=== PATIENT | female | born 1940 | race Caucasian/White ===

== ENCOUNTER → 2016-11-09 | Outpatient (CLI) | payer OTHER, MEDICARE | LOC: FIMAGING 10:23 | PROVIDERS: ATTEND Internal Medicine | DX: Z12.31 Encounter for screening mammogram for malignant neoplasm of breast (principal) | CPT/HCPCS: G0202 ==

== ENCOUNTER → 2017-07-28 | Outpatient (CLI) | payer OTHER, MEDICARE ==
[~2017-07-28] MED LIST: LIDOCAINE 1% 300 MG/30 ML SDV ONE
== END ==
LOC: FIMAGING 12:06
PROVIDERS: ATTEND Internal Medicine
PROC: 0G9K3ZZ Drainage of Thyroid Gland, Percutaneous Approach (ICD-10-PCS; principal; 2017-07-28)
DX: E04.1 Nontoxic single thyroid nodule (principal)

== ENCOUNTER → 2017-11-10 | Outpatient (CLI) | payer OTHER, MEDICARE | LOC: FIMAGING 09:19 | PROVIDERS: ATTEND Internal Medicine | DX: Z12.31 Encounter for screening mammogram for malignant neoplasm of breast (principal) ==

== ENCOUNTER → 2017-12-26 | Outpatient (CLI) | payer OTHER, MEDICARE | LOC: FIMAGING 13:18 | PROVIDERS: ATTEND Internal Medicine | DX: Z13.820 Encounter for screening for osteoporosis (principal); M81.0 Age-related osteoporosis without current pathological fracture; M54.9 Dorsalgia, unspecified; Z82.62 Family history of osteoporosis; Z90.711 Acquired absence of uterus with remaining cervical stump; Z79.890 Hormone replacement therapy; Z79.899 Other long term (current) drug therapy ==

== ENCOUNTER → 2018-05-19 | Outpatient (CLI) | payer OTHER, MEDICARE | LOC: FIMAGING 15:19 | PROVIDERS: ATTEND Specialist | DX: Z12.2 Encounter for screening for malignant neoplasm of respiratory organs (principal); R91.8 Other nonspecific abnormal finding of lung field; D41.02 Neoplasm of uncertain behavior of left kidney ==

== ENCOUNTER 2018-06-15 11:35 | Inpatient (IN) | payer OTHER, MEDICARE | END 2018-06-19 18:04 | disposition home health service (06) | LOC: F3E 11:35 → F1N 12:00 ==

== ENCOUNTER 2018-11-13 12:01 | Day surgery (SDC) | payer OTHER, MEDICARE ==
[2018-11-13] MEDS ORDERED: LR 1,000 ML IV ONE (12:29)
--- NOTE | 2018-11-13 12:55 | PDANEPAE ---
ANE History of Present Illness blood in stool, h/o polyp, abdominal pain ANE Past Medical History - Cardiovascular History Hx Hypertension: No Hx Arrhythmias: No Hx Chest Pain: No Hx Coronary Artery / Peripheral Vascular Disease: No Hx CHF / Valvular Disease: No Hx Palpitations: No - Pulmonary History Hx COPD: No Hx Asthma/Reactive Airway Disease: No Hx Recent Upper Respiratory Infection: No Hx Oxygen in Use at Home: No Hx Sleep Apnea: No Sleep Apnea Screening Result - Last Documented: Negative - Neurologic History Hx Cerebrovascular Accident: No Hx Seizures: No Hx Dementia: No Neurologic History Comment: occ migraine. benign tremor - Endocrine History Hx Diabetes: No Hypothyroid: Yes Hyperthyroid: No Obesity: no Endocrine History Comment: hypothyroidism - Renal History Hx Renal Disorders: Yes Renal History Comment: L KIDNEY CANCER. HX - Hydronephrosis. hx of left nephrectomy and ureterectomy in 06/2018 with Melouk. bladder infection s/p surgery - Liver History Hx Hepatic Disorders: No - Neurological & Psychiatric Hx Hx Neurological and Psychiatric Disorders: No Neurological / Psychiatric History Comment: insomnia - Cancer History Hx Cancer: Yes Cancer History Comment: L KIDNEY CANCER- surgical intervention only. BASAL CELL LESIONS REMOVE - Congenital Disorder History Hx Congenital Disorders: No - GI History GERD: no Hx Gastrointestinal Disorders: Yes Gastrointestinal History Comment: lower abd pain/ aching - Other Health History Other Health History: reading glasses. dental bridge. scleraderma. raynauds - Chronic Pain History Chronic Pain: No - Surgical History Prior Surgeries: bilateral cataracts earlier this month 10/2018. 06/15/18 left robotic nephrectomy/ ureterectomy with Melouk. VEIN ABLATION RONDA LEGS. FINGER SURG 3 FINGERS. SHOULDER R REPAIR. AMAYA ANE Review of Systems Review of systems is: negative Review of Systems: - Exercise capacity Exercise capacity: >=4 METS METS (RN): 4 METS ANE Patient History - Allergies Allergies/Adverse Reactions: adhesive tape Allergy (Verified 11/10/18 16:30) hydrocodone Allergy (Verified 11/10/18 16:30) Nightmares MSG Allergy (Uncoded 11/10/18 16:30) Flushing - Home Medications Home medications: home medication list seen and reviewed Home Medications: Herbals/Supplements -Info Only DAILY 04/13/16 [Last Taken 11/10/18] Levothyroxine [Synthroid 50 mcg (*)] 04/13/16 [Last Taken 11/13/18 09:00] SUMAtriptan [Imitrex 50 MG (*)] Q2H PRN 04/13/16 [Last Taken 09/11/18] Denosumab [Prolia] SQ [id number] 05/25/18 [Last Taken 10/11/18] Doxepin HCl [SINEquan 10 MG (*)] HS 05/25/18 [Last Taken 11/11/18] Estradiol [Estradiol 1 MG (*)] Q2D 05/25/18 [Last Taken 11/11/18] - NPO status NPO Status: no food or drink >8 hours NPO Since - Liquids (Date): 11/13/18 NPO Since - Liquids (Time): 10:30 NPO Since - Solids (Date): 11/12/18 NPO Since - Solids (Time): 08:00 - Anes Hx Anes Hx: no prior problems - Smoking Hx Smoking Status: Never smoked - Family Anes Hx Family Hx Anesthesia Complications: none ANE Labs/Vital Signs - Vital Signs Vital Signs: reviewed preoperatively; see RN documention for details Blood Pressure: 170/86 Heart Rate: 64 Respiratory Rate: 16 O2 Sat (%): 97 Height: 161.29 cm Weight: 47.627 kg ANE Physical Exam - Airway Neck exam: FROM Mallampati Score: Class 2 Mouth exam: normal dental/mouth exam - Pulmonary Pulmonary: no respiratory distress, clear to auscultation - Cardiovascular Cardiovascular: regular rate and rhythym - ASA Status ASA Status: II ANE Anesthesia Plan Anesthesia Plan: GA with mask
[2018-11-13] MEDS ORDERED: PROPOFOL/EMULSION 500 MG/50 ML BOTTLE IV ONE (13:01)
[2018-11-13] MEDS ORDERED: INDOMETHACIN 50 MG SUPP PR PRN (13:25)
--- NOTE | 2018-11-13 13:25 | PDGENHP ---
History & Physical History of Present Illness: 78 year old female presents for evaluation of blood in stools and abdominal discomfort. Pertinent Past, Social, Family History: PMHx: nephrectomy with hydonephrosis Relevant Physical Exam: HEENT: anicteric. CV: RRR +s1s2. lungs: CTAB. Abd: soft, nt, + bs Cardiorespiratory Assessment: ASA 2
[2018-11-13] MEDS ORDERED: NS 500 ML IV SCH (13:30)
--- NOTE | 2018-11-13 14:21 | GIREPORT ---
[facility] - Endoscopy Department Patient Name: Santa Clark Procedure Date: 11/13/2018 1:21 PM Patient Type: Outpatient Attending MD/ ER Physician: Fabian Sommer MD Procedure: Upper GI endoscopy Indications: Epigastric abdominal pain Patient Profile: 78 year old female presentsfor evaluation of epigastric abdominal pain. Providers: Fabian Sommer MD Medicines: Monitored Anesthesia Care Complications: No immediate complications. Estimated blood loss: Minimal. Description of Procedure: After obtaining informed consent, the endoscope was passed under direct vision. Throughout the procedure, the patient's blood pressure, pulse, and oxygen saturations were monitored continuously. The Endoscope was intro duced through the mouth, and advanced to the second part of duodenum. [facility] GI endoscopy was accomplished without difficulty. The patient tolerated th e procedure well. Findings: The examined esophagus was normal. A small hiatal hernia was present. Patchy mildly erythematous mucosa was found in the gastric body and in the gastric antrum. Biopsies were taken with a cold forceps for histology. The examined duodenum was normal. Estimated Blood Loss: Estimated blood loss was minimal. Post Op Diagnosis: - Normal esophagus. - Small hiatal hernia. - Erythematous mucosa in the gastric body and antrum. Biopsied. - Normal examined duodenum. - Etiology? No obvious cause of symptoms. Await biopsy results. Recommendation: - Perform a colonoscopy today. - More recommendations once colonoscopy report. - Await pathology results. - Thank you for allowing me to participate in the care of your patient. Attending Participation: I personally performed the entire procedure. Fabian Sommer MD Fabian Sommer MD 11/13/2018 2:21:21 PM This report has been signed electronicallyFabian Sommer MD Number of Addenda: 0 Note Initiated On: 11/13/2018 1:21 PM [email or web address]
--- NOTE | 2018-11-13 14:31 | GIREPORT ---
[facility] Surgical Services - Endoscopy Department Patient Name: Santa Clark Procedure Date: 11/13/2018 1:40 PM Patient Type: Outpatient Attending MD/ ER Physician: Fabian Sommer MD Procedure: Colonoscopy Indications: Abdominal pain, Hematochezia, Change in bowel habits Patient Profile: 78 year old female presents for evaluation of hematochezia, change in b owel habits. Providers: Fabian Sommer MD Medicines: Monitored Anesthesia Care Complications: No immediate complications. Estimated blood loss: Minimal. Description of Procedure: After obtaining informed consent, the scope was passed under direct vis ion. Throughout the procedure, the patient's blood pressure, pulse, and oxyg en saturations were monitored continuously. The Colonoscope with irrigatio n channel was introduced through the anus and advanced to the terminal il eum. The colonoscopy was performed without difficulty. The patient tolerated the procedure well. The quality of the bowel preparation was good. The term inal ileum, ileocecal valve, appendiceal orifice, and rectum were photograph ed. Findings: The perianal exam findings include non-thrombosed internal hemorrhoids. A 2 mm polyp was found in the transverse colon. The polyp was sessile. The polyp was removed with a cold biopsy forceps. Resection and retrieval w ere complete. Biopsies for histology were taken with a cold forceps for evaluation of microscopic colitis. Diverticula were found in the sigmoid colon and ascending colon. Estimated Blood Loss: Estimated blood loss was minimal. Post Op Diagnosis: - Non-thrombosed internal hemorrhoids found on perianal exam. - One 2 mm polyp in the transverse colon, removed with a cold biopsy forceps. Resected and retrieved. - Diverticulosis in the sigmoid colon and in the ascending colon. - Biopsies were taken with a cold forceps for evaluation of microscopic colitis. - Etiology? No cause of symptoms seen. Suspect blood is hemorrhoidal. A wait biopsy results. Recommendation: - Discharge patient to home (with escort). - The signs and symptoms of potential delayed complications were discus sed with the patient. - Patient has a contact number available for emergencies. - Return to normal activities tomorrow. - Resume previous diet. - Continue present medications. - Repeat colonoscopy in 5 years for surveillance. - Thank you for allowing me to participate in the care of your patient. Attending Participation: I personally performed the entire procedure. Fabian Sommer MD Fabian Sommer MD 11/13/2018 2:31:04 PM This report has been signed electronicallyFabian Sommer MD Number of Addenda: 0 Note Initiated On: 11/13/2018 1:40 PM Total Procedure Duration Time 0 hours 19 minutes 53 seconds [email or web address]
--- NOTE | 2018-11-13 14:53 | POSTANESTH ---
Post Anesthetic Evaluation Cardiovascular Status: Normal, Stable Respiratory Status: Normal, Stable Level of Consciousness/Mental Status: Can Participate in Eval Pain Control: Adequate, Prn Tx Ordered Nausea/Vomiting Control: Adequate, Prn Tx Ordered Complications Possibly Related to Anesthesia: None Noted
[2018-11-13 17:49] VITALS: BP 151/82
== END 2018-11-13 15:30 | disposition home or self-care (01) ==
LOC: FSGY 12:01
PROVIDERS: ATTEND Internal Medicine Gastroenterology
PROC: 0DB98ZX Excision of Duodenum, Via Natural or Artificial Opening Endoscopic, Diagnostic (ICD-10-PCS; principal; 2018-11-13 13:30)
PROC: 0DB68ZX Excision of Stomach, Via Natural or Artificial Opening Endoscopic, Diagnostic (ICD-10-PCS; principal; 2018-11-13 13:30)
PROC: 0DBL8ZX Excision of Transverse Colon, Via Natural or Artificial Opening Endoscopic, Diagnostic (ICD-10-PCS; principal; 2018-11-13 13:30)
PROC: 0DBE8ZX Excision of Large Intestine, Via Natural or Artificial Opening Endoscopic, Diagnostic (ICD-10-PCS; principal; 2018-11-13 13:30)
DX: Z86.010 Personal history of colon polyps (principal); D12.3 Benign neoplasm of transverse colon; K57.30 Diverticulosis of large intestine without perforation or abscess without bleeding; E03.9 Hypothyroidism, unspecified; Z90.5 Acquired absence of kidney; Z85.528 Personal history of other malignant neoplasm of kidney
CPT/HCPCS: J2704

== ENCOUNTER → 2018-11-23 | Outpatient (CLI) | payer OTHER, MEDICARE | LOC: FIMAGING 09:27 ==